=== PATIENT | female | born 1990 | race Caucasian/White ===

== ENCOUNTER → 2016-12-27 | Outpatient (REF) | payer OTHER | LOC: M LAB REF 14:50 | PROVIDERS: ATTEND Advanced Practice Midwife | DX: Z12.4 Encounter for screening for malignant neoplasm of cervix (principal) ==

== ENCOUNTER 2017-02-26 14:34 | Emergency (ER) | payer OTHER ==
[~2017-02-26] VITALS: Ht 162.6 cm; Wt 94.1 kg
[2017-02-26 17:25] LABS: CONTROL LINE HCG INT CTR LINE PRESENT
[2017-02-26 17:47] LABS: MEAN CORPUSCULAR HEMOGLOBIN 27.6 pg (27.0-33.0); MEAN CORPUSCULAR HGB CONC 32.4 g/dl (32.0-36.5); MEAN CORPUSCULAR VOLUME 85.4 fl (80.0-96.0); PLATELET COUNT, AUTOMATED 331 10^3/uL (150-450); RED CELL DISTRIBUTION WIDTH 12.8 % (11.5-14.5); WHITE BLOOD COUNT 12.9 10^3/uL (4.0-10.0)
[2017-02-26 18:01] LABS: HCG, SERUM QUANTITATIVE 21 MIU/ML
[2017-02-26 18:24] LABS: CALCIUM OXALATE CRYSTALS SMALL
--- NOTE | 2017-02-26 18:50 | REPUSA ---
CLINICAL HISTORY: Vaginal bleeding. TECHNIQUE: Realtime sonographic images were obtained in multiple projections. COMMENTS: The uterus is measuring 7.3 x 3.3 x 4.3 cm. The endometrial shows calcifications. No intrauterine p regnancy is seen. There is no evidence of free fluid within the pelvic cul-de-sac. The right ovary measures 2.6 x 2.7 x 1.7 cm and the left ovary measures 2.2 x 1.8 x 1.6 cm. There is a right adnexal free fluid is noted. Both ovaries are free of solid mass. The right ovarian artery resistive index measures 0.6. The left ovarian artery resistive index measu res 0.49. IMPRESSION: 1. No intrauterine is seen. Questionable early IUP versus missed . 2. Endometrial calcifications. 3. Right adnexal free fluid
[2017-02-26 19:51] VITALS: BP 112/75
== END 2017-02-26 20:05 | disposition home or self-care (01) ==
LOC: M ED 14:34
DX: O20.0 Threatened abortion (principal); Z3A.01 Less than 8 weeks gestation of pregnancy

== ENCOUNTER → 2017-02-28 | Outpatient (CLI) | payer OTHER | LOC: M LAB 13:11 | PROVIDERS: ATTEND Physician Assistant Medical | DX: O20.0 Threatened abortion (principal); Z3A.00 Weeks of gestation of pregnancy not specified ==

== ENCOUNTER → 2017-03-08 | Outpatient (CLI) | payer OTHER | LOC: M LAB 09:45 | PROVIDERS: ATTEND Advanced Practice Midwife | DX: N91.2 Amenorrhea, unspecified (principal) ==

== ENCOUNTER → 2017-08-15 | Outpatient (CLI) | payer OTHER | LOC: M RAD 12:24 | DX: M79.672 Pain in left foot (principal) | CPT/HCPCS: 73630 ==

== ENCOUNTER → 2018-08-20 | Outpatient (REF) | payer OTHER | LOC: M LAB REF 18:55 | PROVIDERS: ATTEND Advanced Practice Midwife | DX: Z12.4 Encounter for screening for malignant neoplasm of cervix (principal) ==

== ENCOUNTER → 2018-10-01 | Outpatient (REF) | payer OTHER ==
[2018-10-01 14:11] LABS: APPEARANCE, URINE CLOUDY (CLEAR); BACTERIA, URINE AUTO 1+ (NEGATIVE); BILIRUBIN, URINE AUTO NEGATIVE (NEGATIVE); BLOOD, URINE BLOOD 3+ (NEGATIVE); COLOR, URINE YELLOW (YELLOW); GLUCOSE, URINE (UA) AUTO NEGATIVE (NEGATIVE); KETONE, URINE AUTO NEGATIVE (NEGATIVE); LEUKOCYTE ESTERASE, URINE AUTO 2+ (NEGATIVE); NITRITE, URINE AUTO NEGATIVE (NEGATIVE); PROTEIN, URINE AUTO 2+ mg/dL (NEGATIVE); RBC, URINE AUTO 153 /HPF (0-3); SPECIFIC GRAVITY URINE AUTO 1.015 (1.002-1.035); SQUAMOUS EPITHELIAL CELL UR AU 1 /HPF (0-6); UROBILINOGEN, URINE AUTO 0.2 mg/dL (0.0-2.0); WBC, URINE AUTO TNTC /HPF (0-3)
== END ==
LOC: M LAB REF 13:05
PROVIDERS: ATTEND Physician Assistant Medical
DX: N39.0 Urinary tract infection, site not specified (principal)

== ENCOUNTER → 2019-02-18 | Outpatient (CLI) | payer OTHER ==
[2019-02-18 11:39] LABS: FREE T4 0.89 NG/DL (0.76-1.46); THYROID STIMULATING HORMONE 2.73 uIU/ML (0.358-3.740)
[2019-02-18 11:41] LABS: PROGESTERONE 8.25 NG/ML; PROLACTIN 6.6 NG/ML
[2019-02-20 10:07] LABS: 17 HYDROXY PROGESTERONE 97 ng/dL (.); DEHYDROEPIANDROSTERONE SULFATE 247.2 ug/dL (84.8-378.0); INSULIN LEVEL 18.3 uIU/mL (2.6-24.9); TESTOSTERONE FREE (DIRECT) 3.7 pg/mL (0.0-4.2)
== END ==
LOC: M LAB 09:24
PROVIDERS: ATTEND Advanced Practice Midwife
DX: N91.1 Secondary amenorrhea (principal)